=== PATIENT | female | born 1955 | race Caucasian/White ===

== ENCOUNTER 2021-06-19 05:52 | Day surgery (SDC) | payer OTHER | END 2021-06-19 13:00 | disposition home or self-care (01) | LOC: CIR.AMB 05:52 | PROVIDERS: ATTEND Surgery | DX: D12.4 Benign neoplasm of descending colon (principal); D12.5 Benign neoplasm of sigmoid colon; K62.1 Rectal polyp; Z20.822 Contact with and (suspected) exposure to COVID-19 ==